=== PATIENT | female | born 2000 | race African-American/Black ===

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

== ENCOUNTER 2021-01-08 04:41 | Inpatient (IN) | payer OTHER ==
[~2021-01-08] VITALS: Ht 170.2 cm; Wt 78.9 kg
[~2021-01-08 04:41] MED LIST: DICLEGIS DR 101 EACH PO; PHENERGAN12.5 M1 PO; PRENATAL FORMU1 EACH PO
[2021-01-08 07:23] LABS: HCT 36.6 % (37.0-47.0); HGB 12.8 g/dl (12.5-16.0); MCH 32.3 pg (25.0-31.0); MCV 92.4 fL (78.0-100.0); RBC 3.96 M/uL (4.20-5.40); RDW 11.8 % (11.5-14.0); WBC 11.2 K/uL (4.0-10.5)
[2021-01-08 07:24] LABS: BILIRUBIN NEGATIVE (NEGATIVE); BLOOD NEGATIVE Ery/uL (NEGATIVE); CLARITY CLEAR (CLEAR); COLOR YELLOW (YELLOW); GLUCOSE (U) NORMAL (NORMAL); LEUKOCYTES NEGATIVE Leu/uL (NEGATIVE); NITRITE NEGATIVE (NEGATIVE); PROTEIN NEGATIVE (NEGATIVE); SPECIFIC GRAVITY 1.015 (1.001-1.030); UROBILINOGEN 0.2 mg/dL (0.2-1.0)
[2021-01-08 07:28] LABS: MARIJUANA (THC) POSITIVE (NEGATIVE)
[2021-01-08 07:29] LABS: AMPHETAMINES NEGATIVE (NEGATIVE); BARBITURATES NEGATIVE (NEGATIVE); ECSTASY (MDMA) NEGATIVE (NEGATIVE); METHADONE NEGATIVE (NEGATIVE); OPIATES NEGATIVE (NEGATIVE); OXYCODONE NEGATIVE (NEGATIVE)
[2021-01-08 07:38] LABS: YEAST PRESENT
[2021-01-08 07:39] LABS: BACTERIA TRACE
[2021-01-09 06:21] LABS: HCT 31.8 % (37.0-47.0); HGB 11.1 g/dl (12.5-16.0); MCH 32.5 pg (25.0-31.0); MCHC 34.9 g/dL (32.0-36.0); MPV 11.1 fL (6.0-9.5); RBC 3.42 M/uL (4.20-5.40); RDW 11.8 % (11.5-14.0); WBC 11.7 K/uL (4.0-10.5)
--- NOTE | 2021-01-10 11:22 | NUR ---
SPOKE TO ON BEHALF OF CASE MANAGEMENT FOR SOCIAL SERVICE ISSUES. PATIENT HAD A VERY PLEASANT DEMEANOR AND WAS OPEN TO CONVERSATION. STATES SHE HAS STABLE HOUSING AND LIVES WITH HER BOYFRIEND, THE FATHER OF HER CHILD. STATES THAT THE FATHER, HIS FAMILY AND HER FAMILY ARE ALL SUPPORTIVE AND WILL BE TAKING ACTIVE ROLES IN CARE FOR THE . 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 DENIED ANY FINANCIAL CONCERNS AND STATES SHE IS ALREADY ON WIC. DENIES ANY RECENT MARIJUANA USE AND DENIES ANY SUBSTANCE ABUSE PROBLEMS. IT IS UNKNOWN IF THE INFANT WAS POSITIVE FOR ANY DRUGS. I PROVIDED THE PATIENT WITH NUMEROUS RESOURCES INCLUDING NA INFORMATION, PHONE NUMBERS FOR COMMUNICARE OF NOHEMI, HANDS PROGRAM, DEPARTMENT OF COMMUNITY BASED SERVICES FOR NOHEMI, HEALTH DEPARTMENT CONTACT INFO, AND RESOURCES. ALSO PROVIDED PRINTOUTS FOR CARE AND MILESTONES. PATIENT WAS VERY RECEPTIVE AND STATED THAT IT WOULD BE OKAY FOR A C ENGINEER TO REACH OUT TO HER IF THEY FELT THE NEED TO. I WILL PASS THIS INFORMATION ALONG TO SOCIAL WORK
== END 2021-01-10 13:12 | disposition home or self-care (01) | DRG 806 ==
LOC: FOD 04:41 → FOB 04:42 → FOD 06:17 → FOB 06:18 → FOD 06:18 → FOB 01-10 13:12
PROVIDERS: Obstetrics & Gynecology; ADMIT Obstetrics & Gynecology
PROC: 10E0XZZ Delivery of Products of Conception, External Approach (ICD-10-PCS; principal; 2021-01-08)
PROC: 0UQMXZZ Repair Vulva, External Approach (ICD-10-PCS; 2021-01-08)
DX: O36.5930 Maternal care for other known or suspected poor fetal growth, third trimester, not applicable or unspecified (principal); O99.324 Drug use complicating childbirth; Z37.0 Single live birth; Z3A.39 39 weeks gestation of pregnancy; O99.02 Anemia complicating childbirth; Z20.822 Contact with and (suspected) exposure to COVID-19; N31.9 Neuromuscular dysfunction of bladder, unspecified; O71.82 Other specified trauma to perineum and vulva; F12.90 Cannabis use, unspecified, uncomplicated; O99.891 Other specified diseases and conditions complicating pregnancy; O99.824 Streptococcus B carrier state complicating childbirth
CPT/HCPCS: 36415; 80305; 81001; J2300; J2405; J2540; J7120; U0002

== ENCOUNTER 2021-02-05 11:29 | Emergency (ER) | payer OTHER ==
[2021-02-05 12:51] LABS: BILIRUBIN NEGATIVE (NEGATIVE); BLOOD 1+ Ery/uL (NEGATIVE); CLARITY CLOUDY (CLEAR); COLOR YELLOW (YELLOW); GLUCOSE (U) NORMAL (NORMAL); LEUKOCYTES TRACE Leu/uL (NEGATIVE); NITRITE NEGATIVE (NEGATIVE); PROTEIN TRACE (LOW) mg/dL (NEGATIVE); SPECIFIC GRAVITY >=1.030 (1.001-1.030); UROBILINOGEN 0.2 mg/dL (0.2-1.0)
[2021-02-05 12:56] LABS: AMPHETAMINES NEGATIVE (NEGATIVE); BARBITURATES NEGATIVE (NEGATIVE); ECSTASY (MDMA) NEGATIVE (NEGATIVE); MARIJUANA (THC) POSITIVE (NEGATIVE); METHADONE NEGATIVE (NEGATIVE); OPIATES NEGATIVE (NEGATIVE); OXYCODONE NEGATIVE (NEGATIVE)
[2021-02-05 13:00] LABS: BACTERIA 3+
[2021-02-05 13:01] LABS: MUCOUS MODERATE
[2021-02-05 13:08] LABS: BASOPHIL 0.7 % (0-2); EOSINOPHIL 3.4 % (0-5); HCT 38.4 % (37.0-47.0); HGB 12.9 g/dl (12.5-16.0); LYMPHOCYTE 41.7 % (15-48); MCH 31.8 pg (25.0-31.0); MCHC 33.6 g/dL (32.0-36.0); MCV 94.6 fL (78.0-100.0); MONOCYTE 7.4 % (0-12); MPV 9.8 fL (6.0-9.5); NEUTROPHIL 46.6 % (41-80); NRBC 0; PLT 294 K/uL (150-400); RBC 4.06 M/uL (4.20-5.40); RDW 11.2 % (11.5-14.0)
[2021-02-05 13:24] LABS: BUN/CREAT RATIO (CALC) 11.4 RATIO; CREATININE 0.79 mg/dL (0.51-0.95); POTASSIUM 3.7 mmol/L (3.5-5.1)
[2021-02-05] MEDS ORDERED: BACTRIM DS TAB1 EACH PO (13:33)
== END 2021-02-05 13:45 | disposition home or self-care (01) ==
LOC: FER 11:29
PROVIDERS: Nurse Practitioner Family
DX: S06.0X0A Concussion without loss of consciousness, initial encounter (principal); S00.81XA Abrasion of other part of head, initial encounter; N39.0 Urinary tract infection, site not specified; W10.9XXA Fall (on) (from) unspecified stairs and steps, initial encounter; Y92.009 Unspecified place in unspecified non-institutional (private) residence as the place of occurrence of the external cause
CPT/HCPCS: 36415; 70450; 80048; 80305; 81001; 85025; J1100; J1885; J2405; J7030